=== PATIENT | female | born 1995 | race Caucasian/White ===

== ENCOUNTER 2019-04-21 21:49 | Emergency (ER) | payer OTHER ==
[~2019-04-21] VITALS: Ht 157.5 cm; Wt 74.8 kg
[2019-04-21] MEDS ORDERED: ONDANSETRON HCL4 M2 PO (22:36)
[2019-04-21 22:38] VITALS: BP 111/73
== END 2019-04-21 22:45 | disposition home or self-care (01) ==
LOC: ER 21:49
DX: S20.469A Insect bite (nonvenomous) of unspecified back wall of thorax, initial encounter (principal); W57.XXXA Bitten or stung by nonvenomous insect and other nonvenomous arthropods, initial encounter; Y92.89 Other specified places as the place of occurrence of the external cause; Y93.89 Activity, other specified; Y99.8 Other external cause status